=== PATIENT | male | born 1950 | race Caucasian/White ===

== ENCOUNTER 2016-07-20 15:03 | Emergency (ER) | payer MEDICARE ==
[2016-07-20 15:11] VITALS: BP 118/74; PULSE 52; TEMP 98.4; BMI 37.2
[2016-07-20] MEDS ORDERED: KETOROLAC TROMETHAMINE 60 MG/2 ML VIAL IVPUSH ONE (17:05)
[2016-07-20] MEDS ORDERED: CYCLOBENZAPRINE HCL 10 MG TABLET (FP) PO ONE (17:06)
--- NOTE | 2016-07-20 17:06 | PDOC ---
History of Present Illness - General Chief Complaint: Pain Stated Complaint: PAIN Time Seen by Provider: 07/20/16 16:47 History Source: Patient Exam Limitations: No Limitations - History of Present Illness Initial Comments: 07/20/16 17:00 Agent is here with complaints of tightness, spasm, worsening pain to his left shoulder and back. States has had trouble with his back muscles for many weeks, takes naprosyn with minimal Occurred: reports: just prior to arrival Severity: reports: mild Pain Location: reports: back, chest Loss of Consciousness: no loss of consciousness Past History - Travel Traveled outside of the country in the last 30 days: No Close contact w/someone who was outside of country & ill: No - Past Medical History Allergies/Adverse Reactions: Allergies Allergy/AdvReac Type Severity Reaction Status Date / Time No Known Allergies Allergy Verified 07/20/16 15:08 Home Medications: Ambulatory Orders Cyclobenzaprine HCl [Flexeril 10 mg] 10 mg PO BID PRN #14 tablet 07/20/16 Diabetes: Yes HTN: Yes - Psycho/Social/Smoking Cessation Hx Suicidal Ideation: No Smoking History: Former smoker Have you smoked in the past 12 months: No If you are a former smoker, when did you quit?: 35 years ago Information on smoking cessation initiated: No Review of Systems - Review of Systems Able to Perform ROS?: Yes Is the patient limited [place] proficient: Yes Constitutional: Yes: Symptoms Reported, See HPI. No: Loss of Appetite HEENTM: Yes: See HPI. No: Symptoms Reported Respiratory: Yes: See HPI. No: Symptoms reported : No: Symptoms Reported Musculoskeletal: Yes: See HPI, Back Pain, Neck Pain (wiwth tension). No: Symptoms Reported Integumentary: Yes: Symptoms Reported, See HPI Neurological: Yes: Symptoms reported All Other Systems: Reviewed and Negative *Physical Exam - Vital Signs Last Vital Signs Temp Pulse Resp BP Pulse Ox 98.4 F 52 L 20 118/74 98 07/20/16 15:08 07/20/16 15:08 07/20/16 15:08 07/20/16 15:08 07/20/16 15:08 - Physical Exam General Appearance: Yes: Nourished, Appropriately Dressed, Apparent Distress, Mild Distress HEENT: positive: LATASHA, Normal ENT Inspection, TMs Normal, Pharynx Normal. negative: Rhinorrhea Neck: positive: Tender, Supple, Other (tight tense muscle groups paravertebral spinous muscles, some mild spasm noted to the cervical/sternocleidomastoid muscles ). negative: Lymphadenopathy (R) Respiratory/Chest: positive: Lungs Clear, Normal Breath Sounds. negative: Chest Tender Cardiovascular: positive: Regular Rhythm Gastrointestinal/Abdominal: positive: Normal Bowel Sounds, Soft. negative: Tender Musculoskeletal: positive: Normal Inspection. negative: CVA Tenderness Extremity: positive: Normal Inspection, Normal Range of Motion, Tender Integumentary: positive: Normal Color, Dry, Warm Neurologic: positive: mc kay stitcher II-XII NML intact, Fully Oriented, Alert, Normal Mood/ Affect, Normal Response, Motor Strength /5 Progress Note - Progress Note Progress Note: Muscle spasm, cervical strain will treat with NSAIDs and cyclobenzaprine *DC/Admit/Observation/Transfer Diagnosis at time of Disposition: Cervical myofascial strain Qualifiers: Encounter type: initial encounter Qualified Code(s): S16.1XXA - Strain of muscle, fascia and tendon at neck level, initial encounter - Discharge Dispostion Disposition: HOME Condition at time of disposition: Stable Admit: No - Patient Instructions Printed Discharge Instructions: DI for Cervical Muscle Strain Additional Instructions: Rest, no heavy lifting or exercise until pain is resolved Hot soaks to neck and low back as often as possible/hot showers or Jacuzzis No massage or therapy until spasm is gone Continue Naprosyn 500 mg tablets ,one tablet every 8 hours for the next 3 days then as needed for pain and swelling Cyclobenzaprine 1-10mg every 8 hours as needed for spasm If not significant improvement within 24 hours with medication and rest regime, followup with private physician for change in medications and /or therapy.
== END 2016-07-20 17:09 | disposition home or self-care (01) ==
LOC: JERFT 15:03
PROC: 3E0333Z Introduction of Anti-inflammatory into Peripheral Vein, Percutaneous Approach (ICD-10-PCS; principal; 2016-07-20)
DX: S16.1XXA Strain of muscle, fascia and tendon at neck level, initial encounter (principal); I10 Essential (primary) hypertension; E11.9 Type 2 diabetes mellitus without complications; X50.1XXA Overexertion from prolonged static or awkward postures, initial encounter; X50.9XXA Other and unspecified overexertion or strenuous movements or postures, initial encounter; Y93.89 Activity, other specified; Y92.89 Other specified places as the place of occurrence of the external cause; Y99.8 Other external cause status
CPT/HCPCS: 99281-25

== ENCOUNTER 2021-03-22 10:25 | Emergency (ER) | payer OTHER ==
[2021-03-22 10:37] VITALS: BMI 36.5
[2021-03-22] MEDS ORDERED: ACETAMINOPHEN 500 MG TABLET (FP) PO ONE (11:33)
[2021-03-22] MEDS ORDERED: ACETAMINOPHEN 325 MG TABLET (FP) ONE (11:41)
[2021-03-22 12:38] LABS: BASO % 0.6 % (0-2.0); EOS % 1.9 % (0-4.5); HEMOGLOBIN 12.2 GM/dL (11.7-16.9); LYMPH % 16.3 % (8-40); MCH 26.7 pg (25.7-33.7); MCHC 33.1 g/dl (32.0-35.9); MEAN CELL VOLUME 80.7 fl (80-96); MEAN PLT VOLUME 8.1 fl (7.5-11.1); NEUT % 73.2 % (42.8-82.8); PLATELET COUNT 196 10^3/uL (134-434); RBC 4.59 M/mm3 (4.00-5.60); RDW 14.6 % (11.9-15.9); WHITE BLOOD COUNT 5.4 K/mm3 (4.0-10.0)
[2021-03-22 12:45] LABS: CALCIUM 8.5 mg/dL (8.5-10.1)
[2021-03-22 12:47] LABS: ALBUMIN 3.7 g/dl (3.4-5.0); BLOOD UREA NITROGEN 23.1 mg/dL (7-18); MAGNESIUM 1.5 mg/dL (1.8-2.4)
[2021-03-22 12:49] LABS: CREATININE 1.4 mg/dL (0.55-1.3)
[2021-03-22 12:51] LABS: BILIRUBIN,TOTAL 0.9 mg/dL (0.2-1)
[2021-03-22 17:28] VITALS: BP 186/84; PULSE 56; TEMP 98.8
== END 2021-03-22 17:28 | disposition left against medical advice (07) ==
LOC: JER 10:25
DX: S52.501A Unspecified fracture of the lower end of right radius, initial encounter for closed fracture (principal); S09.90XA Unspecified injury of head, initial encounter; W10.8XXA Fall (on) (from) other stairs and steps, initial encounter
CPT/HCPCS: 36415; 70450-TC; 72125-TC; 73110-TC-RT-FY; 73130-TC-RT-FY; 73523-TC-FY; 80053; 82550; 82553; 82962; 83735; 84484; 85025; 93005; 93010; 99285-25; C9803; U0003; U0005

== ENCOUNTER 2023-04-09 20:17 | Inpatient (IN) | payer OTHER ==
[2023-04-09 20:30] VITALS: BMI 36.7
[2023-04-09] MEDS ORDERED: ALBUTEROL SO4 0.083% IH SOL 2.5 MG/3 ML VIAL.NEB. NEB ONE (20:39)
[2023-04-09] MEDS: ALBUTEROL SO4 0.083% IH SOL 2.5 MG/3 ML VIAL.NEB. NEB ONE (20:43)
[2023-04-09 21:26] LABS: VENOUS BASE EXCESS -2.5 mmol/L (-2-2); VENOUS O2 SATURATION 93.9 % (70-80); VENOUS PCO2 40.8 mmHg (38-52); VENOUS PH 7.363 (7.310-7.410)
[2023-04-09 21:27] LABS: BASO % 0.5 % (0-2.0); EOS % 0.3 % (0-4.5); HEMATOCRIT 35.4 % (35.4-49); HEMOGLOBIN 12.2 GM/dL (11.7-16.9); MCH 28.4 pg (25.7-33.7); MCHC 34.5 g/dl (32.0-35.9); MEAN CELL VOLUME 82.4 fl (80-96); MEAN PLT VOLUME 7.3 fl (7.5-11.1); MONO % 7.4 % (3.8-10.2); NEUT % 84.8 % (42.8-82.8); PLATELET COUNT 148 10^3/uL (134-434); RDW 14.4 % (11.9-15.9); WHITE BLOOD COUNT 7.8 K/mm3 (4.0-10.0)
[2023-04-09 21:33] LABS: INR 1.3 (0.83-1.09)
[2023-04-09] MEDS ORDERED: ALBUTEROL SO4 2.5/IPRATROPIUM 0.5 INH SOL 3 ML VIAL.NEB. NEB ONE ×2 (21:34→21:36)
[2023-04-09] MEDS ORDERED: DEXAMETHASONE SOD PHOSPHATE 10 MG/1 ML VIAL ONE (21:35)
[2023-04-09 21:36] LABS: ACTIVATED PTT 30.5 SECONDS (25.2-36.5)
[2023-04-09 21:42] LABS: POTASSIUM 4.1 mmol/L (3.5-5.1)
[2023-04-09] MEDS: ALBUTEROL SO4 2.5/IPRATROPIUM 0.5 INH SOL 3 ML VIAL.NEB. NEB ONE (21:42)
[2023-04-09 21:45] LABS: CALCIUM 7.4 mg/dL (8.5-10.1)
[2023-04-09 21:47] LABS: ALBUMIN 3.4 g/dl (3.4-5.0); BLOOD UREA NITROGEN 20.5 mg/dL (7-18)
[2023-04-09] MEDS: DEXAMETHASONE SOD PHOSPHATE 20 MG/5 ML VIAL IVPB ONE (21:49)
[2023-04-09] MEDS: ALBUTEROL SO4 2.5/IPRATROPIUM 0.5 INH SOL 3 ML VIAL.NEB. NEB SCH (21:49)
[2023-04-09 21:50] LABS: BILIRUBIN,TOTAL 0.8 mg/dL (0.2-1); CREATININE 1.3 mg/dL (0.55-1.3)
[2023-04-09 21:51] LABS: TOT PROT 6.5 g/dl (6.4-8.2)
[2023-04-09 21:55] LABS: N-TERMINAL BNP 3888.5 pg/ml (5-125)
[2023-04-09] MEDS ORDERED: ENOXAPARIN NA (PORCINE) 100 MG/1 ML DISP.SYRIN SQ ONE (23:36)
[2023-04-09] MEDS ORDERED: ENOXAPARIN NA (PORCINE) 30 MG/0.3 ML DISP.SYRIN SQ ONE (23:36)
[2023-04-09] MEDS: ENOXAPARIN NA (PORCINE) 120 MG/0.8 ML DISP.SYRIN SQ ONE (23:39)
[2023-04-10] MEDS ORDERED: FUROSEMIDE 40 MG/4 ML INJECTABLE VIAL ONE (01:30)
[2023-04-10] MEDS: FUROSEMIDE 40 MG/4 ML INJECTABLE VIAL IVPUSH ONE (01:33)
[2023-04-10] MEDS ORDERED: ASPIRIN 81 MG CHEWABLE TABLETS ONE (01:54)
[2023-04-10] MEDS ORDERED: OSELTAMIVIR PHOSPHATE 75 MG CAPSULE ONE ×2 (01:54→22:04)
[2023-04-10] MEDS ORDERED: methylPREDNISolone NA SUCC 40 MG/1 ML VIAL ONE ×2 (01:54→22:04)
[2023-04-10] MEDS: methylPREDNISolone NA SUCC 40 MG/1 ML VIAL IVPUSH SCH (02:05)
[2023-04-10] MEDS: ASPIRIN 81 MG CHEWABLE TABLETS PO ONE (02:05)
[2023-04-10] MEDS: OSELTAMIVIR PHOSPHATE 75 MG CAPSULE PO SCH (02:05)
[2023-04-10] MEDS: INSULIN ASPART SLIDING SCALE (NOVOLOG) 1 VIAL SQ SCH (02:06)
[2023-04-10] MEDS: FUROSEMIDE 40 MG/4 ML INJECTABLE VIAL IVPUSH SCH (06:06)
[2023-04-10 07:36] LABS: HEMATOCRIT 35.8 % (35.4-49); HEMOGLOBIN 12.6 GM/dL (11.7-16.9); MCH 28.5 pg (25.7-33.7); MCHC 35.2 g/dl (32.0-35.9); MEAN CELL VOLUME 80.9 fl (80-96); MEAN PLT VOLUME 7.6 fl (7.5-11.1); PLATELET COUNT 166 10^3/uL (134-434); RBC 4.42 M/mm3 (4.00-5.60); RDW 14.9 % (11.9-15.9); WHITE BLOOD COUNT 5.3 K/mm3 (4.0-10.0)
[2023-04-10 07:44] LABS: POTASSIUM 3.6 mmol/L (3.5-5.1)
[2023-04-10 08:15] LABS: BLOOD UREA NITROGEN 19.2 mg/dL (7-18); CALCIUM 8.2 mg/dL (8.5-10.1)
[2023-04-10 08:16] LABS: ALBUMIN 3.5 g/dl (3.4-5.0); MAGNESIUM 1.8 mg/dL (1.8-2.4)
[2023-04-10 08:19] LABS: CREATININE 1.3 mg/dL (0.55-1.3); PHOSPHOROUS 2.9 mg/dL (2.5-4.9)
[2023-04-10 08:20] LABS: BILIRUBIN,TOTAL 0.8 mg/dL (0.2-1)
[2023-04-10] MEDS: ENOXAPARIN NA (PORCINE) 120 MG/0.8 ML DISP.SYRIN SQ SCH (09:07)
[2023-04-10] MEDS: ASPIRIN 81 MG CHEWABLE TABLETS PO SCH (09:08)
[2023-04-10 10:47] LABS: ANISOCYTOSIS 0; MACROCYTOSIS 0
[2023-04-10] MEDS ORDERED: INSULIN (NOVOLOG) ASPART 100 UNITS/ML 10ML VIAL SQ SCH (22:00)
[2023-04-10] MEDS ORDERED: ATORVASTATIN CA 40 MG TABLET (FP) ONE (22:03)
[2023-04-10] MEDS ORDERED: ENOXAPARIN NA (PORCINE) 100 MG/1 ML DISP.SYRIN SQ ONE (22:04)
[2023-04-10] MEDS ORDERED: ENOXAPARIN NA (PORCINE) 40 MG/0.4 ML DISP.SYRIN SQ ONE (22:04)
[2023-04-10] MEDS: ALBUTEROL SO4 2.5/IPRATROPIUM 0.5 INH SOL 3 ML VIAL.NEB. NEB SCH (22:20)
[2023-04-10] MEDS: ATORVASTATIN CA 40 MG TABLET (FP) PO SCH (22:47)
[2023-04-10] MEDS: INSULIN (LEVEMIR) 100 UNITS/ML UNITS SQ SCH (23:08)
[2023-04-11] MEDS ORDERED: FUROSEMIDE 40 MG/4 ML INJECTABLE VIAL ONE (06:38)
[2023-04-11 07:07] VITALS: TEMP 97.6
[2023-04-11 08:35] LABS: BASO % 0.1 % (0-2.0); EOS % 0.1 % (0-4.5); HEMATOCRIT 38.8 % (35.4-49); LYMPH % 8.9 % (8-40); MCH 27.9 pg (25.7-33.7); MCHC 33.6 g/dl (32.0-35.9); MEAN CELL VOLUME 83.2 fl (80-96); MEAN PLT VOLUME 8.1 fl (7.5-11.1); MONO % 8.7 % (3.8-10.2); NEUT % 82.2 % (42.8-82.8); PLATELET COUNT 189 10^3/uL (134-434); RBC 4.66 M/mm3 (4.00-5.60); RDW 14.3 % (11.9-15.9); WHITE BLOOD COUNT 7.4 K/mm3 (4.0-10.0)
[2023-04-11] MEDS ORDERED: ALBUTEROL SO4 2.5/IPRATROPIUM 0.5 INH SOL 3 ML VIAL.NEB. NEB ONE (08:58)
[2023-04-11 09:03] LABS: ALBUMIN 3.4 g/dl (3.4-5.0); BILIRUBIN,DIRECT 0.2 mg/dL (0.0-0.2); BILIRUBIN,TOTAL 0.9 mg/dL (0.2-1); BLOOD UREA NITROGEN 26.7 mg/dL (7-18); CREATININE 1.3 mg/dL (0.55-1.3); POTASSIUM 3.7 mmol/L (3.5-5.1); TOT PROT 6.6 g/dl (6.4-8.2)
[2023-04-11 10:16] VITALS: BP 209/76; PULSE 55; RESP 16
== END 2023-04-11 11:00 | disposition short-term general hospital (02) | DRG 280 ==
LOC: JER 20:17 → JERBED 04-10 00:18
PROVIDERS: ADMIT Internal Medicine
DX: I21.4 Non-ST elevation (NSTEMI) myocardial infarction (principal); J96.91 Respiratory failure, unspecified with hypoxia; I31.39 Other pericardial effusion (noninflammatory); J98.11 Atelectasis; I11.0 Hypertensive heart disease with heart failure; I50.9 Heart failure, unspecified; E11.9 Type 2 diabetes mellitus without complications; J10.1 Influenza due to other identified influenza virus with other respiratory manifestations; I48.91 Unspecified atrial fibrillation; E11.65 Type 2 diabetes mellitus with hyperglycemia; M13.862 Other specified arthritis, left knee; M13.861 Other specified arthritis, right knee; I25.10 Atherosclerotic heart disease of native coronary artery without angina pectoris
CPT/HCPCS: 0241U-QW; 36415; 71045-TC-FY; 71250-TC; 80048; 80053; 80076; 82803; 82962; 83036; 83735; 83880; 84100; 84484; 85025; 85610; 85730; 86850; 86900; 86901; 87040; 87899; 93005; 93010; 93306-TC; 99285-25

== ENCOUNTER 2023-12-13 17:50 | Emergency (ER) | payer OTHER ==
[2023-12-13 18:06] VITALS: BMI 34.9
[2023-12-13] MEDS ORDERED: ACETAMINOPHEN INJECTION 100 ML ONE (18:42)
[2023-12-13 20:33] LABS: HEMATOCRIT 40.6 % (35.4-49); HEMOGLOBIN 13.6 GM/dL (11.7-16.9); MCH 25.9 pg (25.7-33.7); MCHC 33.5 g/dl (32.0-35.9); MEAN CELL VOLUME 77.3 fl (80-96); MEAN PLT VOLUME 7.6 fl (7.5-11.1); PLATELET COUNT 254 10^3/uL (134-434); RBC 5.26 M/mm3 (4.00-5.60); RDW 15.3 % (11.9-15.9); WHITE BLOOD COUNT 13.3 K/mm3 (4.0-10.0)
[2023-12-13 20:37] LABS: INR 1.52 (0.83-1.09)
[2023-12-13 20:40] LABS: ACTIVATED PTT 32.9 SECONDS (25.2-36.5)
[2023-12-13 20:46] LABS: POTASSIUM 3.8 mmol/L (3.5-5.1)
[2023-12-13 20:48] LABS: ALBUMIN 3.1 g/dl (3.4-5.0); BLOOD UREA NITROGEN 21.8 mg/dL (7-18); CALCIUM 8.2 mg/dL (8.5-10.1)
[2023-12-13 20:51] LABS: CREATININE 1.5 mg/dL (0.55-1.3)
[2023-12-13 20:53] LABS: BILIRUBIN,TOTAL 1.8 mg/dL (0.2-1); TOT PROT 6.7 g/dl (6.4-8.2)
[2023-12-13] MEDS: ACETAMINOPHEN 1000 MG/100 ML BAG IVPB ONE (21:05)
[2023-12-13 21:40] LABS: ANISOCYTOSIS 1+; MACROCYTOSIS 0; OVALOCYTE 1+
[2023-12-13 21:53] LABS: EPI CELLS 4 /uL (0-25.1); HYALINE CASTS 1 /uL (0-3.1); URINE APPEARANCE CLEAR; URINE BACTERIA 0 /uL (0-1359); URINE BILIRUBIN NEGATIVE (NEGATIVE); URINE COLOR DK YELLOW; URINE GLUCOSE (UA) 3+ (NEGATIVE); URINE KETONE TRACE (NEGATIVE); URINE LEUK ESTERASE NEGATIVE (NEGATIVE); URINE NITRITE NEGATIVE (NEGATIVE); URINE PROTEIN 2+ (NEGATIVE); URINE RBC 96 /uL (0-23.9); URINE WBC 8 /uL (0-25.8)
[2023-12-14 01:43] VITALS: BP 112/40; PULSE 57; RESP 16; TEMP 98.3
== END 2023-12-14 05:14 | disposition home or self-care (01) ==
LOC: JER 17:50
PROC: 3E033NZ Introduction of Analgesics, Hypnotics, Sedatives into Peripheral Vein, Percutaneous Approach (ICD-10-PCS; principal; 2023-12-13)
DX: K80.20 Calculus of gallbladder without cholecystitis without obstruction (principal); R10.11 Right upper quadrant pain; R10.31 Right lower quadrant pain; R11.0 Nausea; W06.XXXA Fall from bed, initial encounter
CPT/HCPCS: 36415; 70450-TC; 72125-TC; 74177-TC; 76705-TC; 80053; 81003; 83605; 83690; 85025; 85610; 85730; 86850; 86900; 86901; 87086; 99285-25; J0131

== ENCOUNTER 2023-12-17 12:22 | Inpatient (IN) | payer OTHER ==
[2023-12-17 13:33] LABS: BASO % 0.3 % (0-2.0); EOS % 0.4 % (0-4.5); HEMATOCRIT 37.9 % (35.4-49); HEMOGLOBIN 12.8 GM/dL (11.7-16.9); LYMPH % 3.9 % (8-40); MCH 26.1 pg (25.7-33.7); MCHC 33.9 g/dl (32.0-35.9); MEAN CELL VOLUME 77.1 fl (80-96); MEAN PLT VOLUME 8.1 fl (7.5-11.1); MONO % 8.8 % (3.8-10.2); NEUT % 86.6 % (42.8-82.8); PLATELET COUNT 232 10^3/uL (134-434); RBC 4.91 M/mm3 (4.00-5.60); RDW 15.6 % (11.9-15.9); WHITE BLOOD COUNT 9.4 K/mm3 (4.0-10.0)
[2023-12-17 13:51] LABS: POTASSIUM 3.8 mmol/L (3.5-5.1)
[2023-12-17 13:54] LABS: BLOOD UREA NITROGEN 25.6 mg/dL (7-18); MAGNESIUM 1.7 mg/dL (1.8-2.4)
[2023-12-17 13:57] LABS: CREATININE 1.4 mg/dL (0.55-1.3)
[2023-12-17 13:58] LABS: BILIRUBIN,TOTAL 1.6 mg/dL (0.2-1)
[2023-12-17 13:59] LABS: TOT PROT 6.4 g/dl (6.4-8.2)
[2023-12-17 14:02] LABS: ALBUMIN 2.4 g/dl (3.4-5.0); N-TERMINAL BNP 10117.3 pg/ml (5-125)
[2023-12-17] MEDS ORDERED: SODIUM CHLORIDE 0.9% 500 ML INFUS.BAG IV ONE (14:12)
[2023-12-17] MEDS ORDERED: ACETAMINOPHEN INJECTION 100 ML ONE (15:17)
[2023-12-17] MEDS ORDERED: PIPERACILLIN/TAZOB 4.5 GM 4.5 GM/100 ML BAG IVPB ONE (15:17)
[2023-12-17] MEDS: SODIUM CHLORIDE 0.9% 500 ML INFUS.BAG IV ONE (15:20)
[2023-12-17] MEDS: ACETAMINOPHEN 1000 MG/100 ML BAG IVPB ONE (15:20)
[2023-12-17] MEDS: PIPERACILLIN/TAZOB 4.5 GM 4.5 GM in DEXTROSE 5%-WATER 100 ML IVPB ONE (15:50)
[2023-12-17] MEDS: PIPERACILLIN/TAZOB 3.375 GM 3.375 GM in DEXTROSE 5%-WATER - 50 ML IVPB SCH (17:44)
[2023-12-17 18:08] LABS: BILIRUBIN,DIRECT 0.5 mg/dL (0.0-0.2)
[2023-12-17 21:13] VITALS: BMI 33.9
[2023-12-17] MEDS ORDERED: ONDANSETRON 4 MG/2 ML VIAL IVPUSH PRN (22:12)
[2023-12-17] MEDS: INSULIN ASPART SLIDING SCALE (NOVOLOG) 1 VIAL SQ SCH (22:16)
[2023-12-18] MEDS: PIPERACILLIN/TAZOB 3.375 GM 3.375 GM in DEXTROSE 5%-WATER - 50 ML IVPB SCH (01:39)
[2023-12-18 01:45] LABS: EPI CELLS 7 /uL (0-25.1); HYALINE CASTS 0 /uL (0-3.1); URINE APPEARANCE CLEAR; URINE BACTERIA 3 /uL (0-1359); URINE BILIRUBIN NEGATIVE (NEGATIVE); URINE COLOR YELLOW; URINE GLUCOSE (UA) 2+ (NEGATIVE); URINE KETONE NEGATIVE (NEGATIVE); URINE LEUK ESTERASE NEGATIVE (NEGATIVE); URINE NITRITE NEGATIVE (NEGATIVE); URINE PROTEIN 1+ (NEGATIVE); URINE WBC 14 /uL (0-25.8)
[2023-12-18 04:15] LABS: URINE RBC 38.5 /uL (0-23.9)
[2023-12-18 04:16] LABS: YEAST NONE SEEN (NEGATIVE)
[2023-12-18] MEDS: INSULIN ASPART SLIDING SCALE (NOVOLOG) 1 VIAL SQ SCH (06:02)
[2023-12-18] MEDS: ISOSORBIDE MONONITRATE 30 MG TAB.SR.24H (FP) PO SCH (10:04)
[2023-12-18] MEDS: CLOPIDOGREL BISULFATE 75 MG TABLET (FP) PO SCH (10:06)
[2023-12-18 10:56] LABS: BASO % 0.4 % (0-2.0); EOS % 1.3 % (0-4.5); HEMATOCRIT 34.8 % (35.4-49); HEMOGLOBIN 11.3 GM/dL (11.7-16.9); LYMPH % 5.7 % (8-40); MCH 25.4 pg (25.7-33.7); MCHC 32.5 g/dl (32.0-35.9); MEAN CELL VOLUME 78.3 fl (80-96); MEAN PLT VOLUME 8.5 fl (7.5-11.1); MONO % 11.3 % (3.8-10.2); NEUT % 81.3 % (42.8-82.8); PLATELET COUNT 221 10^3/uL (134-434); RBC 4.45 M/mm3 (4.00-5.60); WHITE BLOOD COUNT 9.8 K/mm3 (4.0-10.0)
[2023-12-18 11:02] LABS: POTASSIUM 3.9 mmol/L (3.5-5.1)
[2023-12-18 11:11] LABS: BILIRUBIN,TOTAL 1.6 mg/dL (0.2-1); CREATININE 1.1 mg/dL (0.55-1.3); TOT PROT 5.8 g/dl (6.4-8.2)
[2023-12-18 11:13] LABS: ALBUMIN 2.2 g/dl (3.4-5.0)
[2023-12-18 11:14] LABS: BLOOD UREA NITROGEN 18.1 mg/dL (7-18); CALCIUM 7.9 mg/dL (8.5-10.1); MAGNESIUM 1.7 mg/dL (1.8-2.4)
[2023-12-18 11:19] LABS: PHOSPHOROUS 2.6 mg/dL (2.5-4.9)
[2023-12-18] MEDS: ACETAMINOPHEN 325 MG TABLET (FP) PO PRN (14:42)
[2023-12-18] MEDS ORDERED: BUPIVACAINE HCL/PF 0.25% (2.5MG/ML) 10 ML VIAL ONE (15:54)
[2023-12-18] MEDS: SODIUM CHLORIDE 1,000 ML IV SCH (17:40)
[2023-12-18] MEDS: DEXTROSE 5%-0.45% SALINE 1,000 ML IV SCH (20:00)
[2023-12-19] MEDS: PIPERACILLIN/TAZOB 3.375 GM 3.375 GM in DEXTROSE 5%-WATER - 50 ML IVPB SCH (01:21)
[2023-12-19 09:38] LABS: BASO % 0.5 % (0-2.0); EOS % 1.8 % (0-4.5); HEMATOCRIT 32.6 % (35.4-49); LYMPH % 8.5 % (8-40); MCH 26.1 pg (25.7-33.7); MCHC 33.8 g/dl (32.0-35.9); MEAN CELL VOLUME 77.4 fl (80-96); MEAN PLT VOLUME 8.1 fl (7.5-11.1); MONO % 9.3 % (3.8-10.2); NEUT % 79.9 % (42.8-82.8); PLATELET COUNT 213 10^3/uL (134-434); RBC 4.21 M/mm3 (4.00-5.60); RDW 16.4 % (11.9-15.9); WHITE BLOOD COUNT 7.3 K/mm3 (4.0-10.0)
[2023-12-19] MEDS ORDERED: PIPERACILLIN/TAZOB 4.5 GM 4.5 GM in DEXTROSE 5%-WATER 100 ML IVPB ONE (10:00)
[2023-12-19 10:01] LABS: POTASSIUM 3.9 mmol/L (3.5-5.1)
[2023-12-19 10:10] LABS: BLOOD UREA NITROGEN 16.2 mg/dL (7-18); CALCIUM 7.8 mg/dL (8.5-10.1); MAGNESIUM 1.8 mg/dL (1.8-2.4)
[2023-12-19 10:13] LABS: CREATININE 1.1 mg/dL (0.55-1.3)
[2023-12-19 10:14] LABS: PHOSPHOROUS 3.1 mg/dL (2.5-4.9)
[2023-12-19 10:16] LABS: BILIRUBIN,TOTAL 1.4 mg/dL (0.2-1); TOT PROT 5.8 g/dl (6.4-8.2)
[2023-12-19] MEDS ORDERED: BUPIVACAINE HCL/PF 0.25% (2.5MG/ML) 10 ML VIAL ONE (14:23)
[2023-12-19] MEDS: PIPERACILLIN/TAZOB 4.5 GM 4.5 GM/100 ML BAG IVPB SCH (17:56)
[2023-12-20 10:12] LABS: BASO % 0.6 % (0-2.0); EOS % 1.3 % (0-4.5); HEMOGLOBIN 10.9 GM/dL (11.7-16.9); LYMPH % 11.5 % (8-40); MCH 25.8 pg (25.7-33.7); MCHC 32.9 g/dl (32.0-35.9); MEAN CELL VOLUME 78.5 fl (80-96); MEAN PLT VOLUME 7.6 fl (7.5-11.1); NEUT % 76.6 % (42.8-82.8); PLATELET COUNT 261 10^3/uL (134-434); RBC 4.21 M/mm3 (4.00-5.60); RDW 16.3 % (11.9-15.9); WHITE BLOOD COUNT 6.7 K/mm3 (4.0-10.0)
[2023-12-20] MEDS ORDERED: BUPIVACAINE HCL/PF 0.25% (2.5MG/ML) 10 ML VIAL ONE (10:33)
[2023-12-20] MEDS ORDERED: SUCCINYLCHOLINE CHLORIDE 200 MG/10 ML SYRINGE ONE (11:49)
[2023-12-20] MEDS ORDERED: ROCURONIUM BROMIDE 50 MG/5 ML SYRINGE ONE ×2 (11:49→13:00)
[2023-12-20] MEDS ORDERED: HYDROmorphone HCl 2 MG/ML VIAL ONE (12:09)
[2023-12-20] MEDS ORDERED: MIDAZOLAM HCL 2 MG/2 ML SINGLE DOSE VIAL ONE (12:09)
[2023-12-20] MEDS ORDERED: ACETAMINOPHEN INJECTION 100 ML ONE (12:15)
[2023-12-20] MEDS: BUPIVACAINE HCL/PF 0.25% (2.5MG/ML) 10 ML VIAL IJ ONE (12:15)
[2023-12-20] MEDS ORDERED: SUGAMMADEX SODIUM 200 MG/2 ML VIAL ONE (14:53)
[2023-12-20] MEDS: LACTATED RINGERS SOLUTION 1,000 ML IV SCH ×2 (15:30→18:41)
[2023-12-20] MEDS ORDERED: ONDANSETRON 4 MG/2 ML VIAL IVPUSH PRN (15:34)
[2023-12-20] MEDS ORDERED: oxyCODONE HCL 5 MG TABLET PO PRN ×2 (15:34)
[2023-12-20 15:53] LABS: BASO % 0.7 % (0-2.0); EOS % 0.5 % (0-4.5); HEMOGLOBIN 11.7 GM/dL (11.7-16.9); MCH 25.6 pg (25.7-33.7); MCHC 32.6 g/dl (32.0-35.9); MEAN CELL VOLUME 78.5 fl (80-96); MEAN PLT VOLUME 7.4 fl (7.5-11.1); MONO % 2.8 % (3.8-10.2); PLATELET COUNT 292 10^3/uL (134-434); RBC 4.58 M/mm3 (4.00-5.60); RDW 16.8 % (11.9-15.9)
[2023-12-20] MEDS: INSULIN ASPART SLIDING SCALE (NOVOLOG) 1 VIAL SQ SCH (17:08)
[2023-12-20] MEDS: PIPERACILLIN/TAZOB 4.5 GM 4.5 GM/100 ML BAG IVPB SCH (18:26)
[2023-12-20] MEDS ORDERED: LACTATED RINGERS SOLUTION 1,000 ML IV SCH (19:44)
[2023-12-20] MEDS ORDERED: ACETAMINOPHEN 500 MG TABLET (FP) PO SCH (21:30)
[2023-12-21] MEDS ORDERED: CHLORTHALIDONE 25 MG TABLET PO SCH (10:00)
[2023-12-21] MEDS: LISINOPRIL 20 MG TABLET PO SCH (10:21)
[2023-12-21] MEDS: ISOSORBIDE MONONITRATE 30 MG TAB.SR.24H (FP) PO SCH (10:21)
[2023-12-21 11:18] LABS: BASO % 0.1 % (0-2.0); HEMATOCRIT 31.8 % (35.4-49); HEMOGLOBIN 10.3 GM/dL (11.7-16.9); LYMPH % 4.8 % (8-40); MCH 25.6 pg (25.7-33.7); MCHC 32.5 g/dl (32.0-35.9); MEAN CELL VOLUME 78.8 fl (80-96); MEAN PLT VOLUME 7.6 fl (7.5-11.1); NEUT % 90.1 % (42.8-82.8); PLATELET COUNT 256 10^3/uL (134-434); RBC 4.04 M/mm3 (4.00-5.60); RDW 15.9 % (11.9-15.9); WHITE BLOOD COUNT 10.3 K/mm3 (4.0-10.0)
[2023-12-21 12:09] LABS: POTASSIUM 3.8 mmol/L (3.5-5.1)
[2023-12-21 12:14] LABS: CALCIUM 7.2 mg/dL (8.5-10.1)
[2023-12-21 12:15] LABS: ALBUMIN 1.9 g/dl (3.4-5.0); BLOOD UREA NITROGEN 15.2 mg/dL (7-18)
[2023-12-21 12:18] LABS: CREATININE 1.3 mg/dL (0.55-1.3)
[2023-12-21 12:20] LABS: BILIRUBIN,TOTAL 0.9 mg/dL (0.2-1); TOT PROT 5.6 g/dl (6.4-8.2)
[2023-12-22] MEDS ORDERED: INSULIN (LEVEMIR) 100 UNITS/ML UNITS SQ ONE (06:56)
[2023-12-22 10:28] LABS: BASO % 0.5 % (0-2.0); EOS % 0.7 % (0-4.5); HEMATOCRIT 29.6 % (35.4-49); HEMOGLOBIN 9.5 GM/dL (11.7-16.9); LYMPH % 8.6 % (8-40); MCH 25.4 pg (25.7-33.7); MCHC 32.2 g/dl (32.0-35.9); MEAN CELL VOLUME 78.9 fl (80-96); MEAN PLT VOLUME 7.3 fl (7.5-11.1); MONO % 5.5 % (3.8-10.2); NEUT % 84.7 % (42.8-82.8); PLATELET COUNT 264 10^3/uL (134-434); RBC 3.75 M/mm3 (4.00-5.60); RDW 16.5 % (11.9-15.9); WHITE BLOOD COUNT 7.2 K/mm3 (4.0-10.0)
[2023-12-22 11:10] LABS: POTASSIUM 3.6 mmol/L (3.5-5.1)
[2023-12-22 11:15] LABS: CALCIUM 7.5 mg/dL (8.5-10.1)
[2023-12-22 11:16] LABS: ALBUMIN 1.9 g/dl (3.4-5.0); MAGNESIUM 1.8 mg/dL (1.8-2.4)
[2023-12-22 11:19] LABS: BILIRUBIN,TOTAL 0.8 mg/dL (0.2-1); CREATININE 1.1 mg/dL (0.55-1.3); TOT PROT 5.3 g/dl (6.4-8.2)
[2023-12-22 11:20] LABS: PHOSPHOROUS 1.9 mg/dL (2.5-4.9)
[2023-12-22] MEDS: NAPH,MB-DB/K PH,MBDB POWDER PACKET PO SCH (21:43)
[2023-12-23 10:11] LABS: POTASSIUM 4.1 mmol/L (3.5-5.1)
[2023-12-23 10:14] LABS: CALCIUM 7.4 mg/dL (8.5-10.1)
[2023-12-23 10:15] LABS: ALBUMIN 2.1 g/dl (3.4-5.0); BLOOD UREA NITROGEN 9.2 mg/dL (7-18)
[2023-12-23 10:18] LABS: CREATININE 1.1 mg/dL (0.55-1.3); PHOSPHOROUS 1.9 mg/dL (2.5-4.9)
[2023-12-23 10:19] LABS: BILIRUBIN,TOTAL 0.8 mg/dL (0.2-1); TOT PROT 6.1 g/dl (6.4-8.2)
[2023-12-23] MEDS: CLOPIDOGREL BISULFATE 75 MG TABLET (FP) PO SCH (10:56)
[2023-12-24 08:05] LABS: BASO % 0.6 % (0-2.0); EOS % 1.5 % (0-4.5); HEMOGLOBIN 10.2 GM/dL (11.7-16.9); LYMPH % 12.1 % (8-40); MCH 25.6 pg (25.7-33.7); MCHC 33.1 g/dl (32.0-35.9); MEAN CELL VOLUME 77.5 fl (80-96); MEAN PLT VOLUME 7.2 fl (7.5-11.1); MONO % 7.2 % (3.8-10.2); NEUT % 78.6 % (42.8-82.8); PLATELET COUNT 285 10^3/uL (134-434); RDW 16.2 % (11.9-15.9); WHITE BLOOD COUNT 6.2 K/mm3 (4.0-10.0)
[2023-12-24 08:08] LABS: CALCIUM 7.4 mg/dL (8.5-10.1); POTASSIUM 3.7 mmol/L (3.5-5.1)
[2023-12-24 08:09] LABS: BLOOD UREA NITROGEN 6.6 mg/dL (7-18)
[2023-12-24 08:12] LABS: CREATININE 0.9 mg/dL (0.55-1.3)
[2023-12-24 08:14] LABS: BILIRUBIN,TOTAL 0.8 mg/dL (0.2-1); TOT PROT 5.5 g/dl (6.4-8.2)
[2023-12-24] MEDS: APIXABAN 5 MG TABLET PO SCH (11:40)
[2023-12-24 14:28] VITALS: BP 165/65; PULSE 65; RESP 18; TEMP 98.7
== END 2023-12-24 15:08 | disposition home or self-care (01) | DRG 417 ==
LOC: JER 12:22 → JERBED 16:08 → J6S 20:35
PROVIDERS: ADMIT Internal Medicine; ATTEND Internal Medicine
PROC: 0FT44ZZ Resection of Gallbladder, Percutaneous Endoscopic Approach (ICD-10-PCS; principal; 2023-12-20 12:45)
DX: K80.12 Calculus of gallbladder with acute and chronic cholecystitis without obstruction (principal); K65.1 Peritoneal abscess; K82.A2 Perforation of gallbladder in cholecystitis; I48.0 Paroxysmal atrial fibrillation; I12.9 Hypertensive chronic kidney disease with stage 1 through stage 4 chronic kidney disease, or unspecified chronic kidney disease; N18.31 Chronic kidney disease, stage 3a; E11.9 Type 2 diabetes mellitus without complications; E78.5 Hyperlipidemia, unspecified; E83.42 Hypomagnesemia; E87.6 Hypokalemia
CPT/HCPCS: 0241U-QW; 36415; 70450-TC; 71045-TC-FY; 74181-TC; 76705-TC; 80053; 81003; 82247; 82248; 82607; 82728; 82746; 82962; 83540; 83550; 83690; 83735; 83880; 84100; 84443; 84484; 85025; 86780; 86850; 86900; 86901; 87086; 88304-TC; 93005; 93010; 93306-TC; 94760; 97116-GP; 97162-GP; 99285-25; J0131